=== PATIENT | male | born 1960 | race Caucasian/White ===

== ENCOUNTER → 2019-02-27 | Outpatient (CLI) | payer OTHER | LOC: RAD 10:52 | DX: R06.00 Dyspnea, unspecified (principal); Z88.0 Allergy status to penicillin ==

== ENCOUNTER → 2019-04-04 | Outpatient (CLI) | payer BC, OTHER ==
--- NOTE | 2019-04-22 12:29 | MCT ---
[facility] [place] [address] METHACHOLINE CHALLENGE TEST Name: CRISTÓBAL FISCHER Room #: REG [facility]#: [id number] Admission: 04/04/19 Attend Phys: Devon Ramirez MD Discharge: Date of : 56 Report #: [id number] THIS REPORT FOR: //name// Height: in Exam Date: Weight: lbs BTPS: X >> PRE BRONCHODILATOR: PREDICTED BEST %PRED FORCED VITAL CAPACITY (FRC) L LPM % FORCED EXP VOL/SEC (FEV1) L FEV/FVC % MAX MID-EXP FLOW (FEF 25-75) L/SEC L/SEC % PEAK EXP FLOW RATE (FEF MAX) L/MIN L/MIN MED-VC RATIO (FEF 50/FEF 50) .09 Baseline: Phenol Saline Level 1: 0.025 mg/ml BEST %PRED %CHANGE BEST %PRED %CHANGE FVC 2.54 L 107 % % FVC 2.60 L 109 % 2 % FEV1 2.03 L 117 % % FEV1 2.06 L 119 % 1 % Level 2: 0.25 mg/ml Level 3: 2.5 mg/ml BEST %PRED %CHANGE BEST %PRED %CHANGE FVC 2.61 L 110 % 3 % FVC 2.50 L 105 % -2 % FEV1 2.07 L 120 % 2 % FEV1 1.80 L 104 % -11 % . Level 4: 10 mg/ml Level 5: 25 mg/ml BEST %PRED %CHANGE BEST %PRED %CHANGE FVC 2.10 L 88 % -17 % FVC L % % FEV1 1.31 L 76 % -35 % FEV1 L % % Post Bronchodilator: 1st Treatment Post Bronchodilator: 2nd Treatment BEST %PRED %CHANGE BEST %PRED %CHANGE FVC 2.54 L 107 % -0 % FVC L % % FEV1 1.81 L 104 % -11 % FEV1 L % % Post Bronchodilator: 3rd Treatment BEST %PRED %CHANGE FVC L % % FEV1 L % % >> INTERPRETATION: [facility] [address] [place] [address] METHACHOLINE CHALLENGE TEST Name: AALIYAHCRISTÓBAL Room #: REG [facility]#: [id number] Admission: 04/04/19 Attend Phys: Devon Ramirez MD Discharge: Date of : 56 Report #: [id number] CC: Eduardo Ramirez Methacholine challenge: Baseline FEV1 is 2.03 liters (117%) with a reference number of 1.73 liters. With increasing doses of methacholine, the patient did drop to 1.31 liters, which is 35% change. Bronchodilator therapy was given with appropriate response. IMPRESSION: This is a positive methacholine challenge test. Please correlate clinically. <ELECTRONICALLY SIGNED> By: Arthur Auguste MD 04/22/19 1229 Arthur Auguste MD /[email or web address]
== END ==
LOC: PUL 09:38
DX: R06.02 Shortness of breath (principal); Z88.0 Allergy status to penicillin